=== PATIENT | male | born 1970 | race African-American/Black ===

== ENCOUNTER 2023-04-21 20:12 | Emergency (ER) | payer BC, OTHER ==
[2023-04-21 21:08] VITALS: BP 152/92; PULSE 125; RESP 20; TEMP 100.1
[2023-04-21] MEDS: ACETAMINOPHEN TAB 500 MG TAB PO STA (22:59)
[2023-04-21] MEDS: IBUPROFEN 800 MG TAB PO STA (23:00)
--- NOTE | 2023-04-21 23:21 | XR ---
EXAM: XR Chest, 2 Views CLINICAL HISTORY: ITS.REASON XR Reason: cough, fever TECHNIQUE: Frontal and lateral views of the chest. COMPARISON: No relevant prior studies available. FINDINGS: Lungs: No consolidation. No overt edema. Pleural space: No pleural effusion. No pneumothorax. Heart: Unremarkable. No cardiomegaly. Bones/joints: Unremarkable. No fracture or malalignment. Upper abdomen: Elevated right hemidiaphragm. IMPRESSION: Elevated right hemidiaphragm.
--- NOTE | 2023-04-22 00:14 | ED ---
URI HPI - General Chief Complaint: Upper Respiratory Infection Stated Complaint: pressure in head Time Seen by Provider: 04/21/23 22:13 Source: patient Mode of arrival: ambulatory Limitations: no limitations - History of Present Illness Initial Comments: 53-year-old male presenting with chief complaint of fever cough and congestion. He states that symptoms started today. He admits to headache. He does have some chest pain with coughing otherwise no chest pain. Minimal shortness of breath. No abdominal pain nausea vomiting or diarrhea. He has been taking DayQuil for his symptoms. - Related Data Previous Rx's Medication Instructions Recorded Oseltamivir [Tamiflu] 75 mg PO Q12HR 5 Days #9 cap 04/22/23 Allergies Allergy/AdvReac Type Severity Reaction Status Date / Time No Known Allergies Allergy Verified 04/21/23 20:48 Review of Systems ROS Statement: Those systems with pertinent positive or pertinent negative responses have been documented in the HPI. ROS Other: All systems not noted in ROS Statement are negative. Past Medical History Past Medical History: Hypertension History of Any Multi-Drug Resistant Organisms: None Reported Past Surgical History: No Surgical Hx Reported Past Psychological History: No Psychological Hx Reported Smoking Status: Never smoker Past Alcohol Use History: None Reported Past Drug Use History: None Reported General Exam Limitations: no limitations General appearance: alert, in no apparent distress Head exam: Present: atraumatic, normocephalic Eye exam: Present: normal appearance Neck exam: Present: normal inspection Respiratory exam: Present: normal lung sounds bilaterally. Absent: respiratory distress, wheezes, rales, rhonchi, stridor Cardiovascular Exam: Present: normal rhythm, tachycardia, normal heart sounds. Absent: systolic murmur, diastolic murmur, rubs, gallop, clicks Neurological exam: Present: alert, oriented X3 Expanded Patient oriented to: Present: person, place, time Speech: Present: fluid speech Eye Response: (4) open spontaneously Motor Response: (6) obeys commands Verbal Response: (5) oriented Psychiatric exam: Present: normal affect, normal mood Skin exam: Present: warm, dry Course Vital Signs 04/21/23 20:45 Temperature 100.1 F H Pulse Rate 125 H Respiratory 20 Rate Blood Pressure 152/92 O2 Sat by Pulse 97 Oximetry Medical Decision Making - Medical Decision Making Was pt. sent in by a medical professional or institution (Dr., PA, DRIER TENDER [employer], urgent care, hospital, or skilled nursing...) When possible be specific @ -No Did you speak to anyone other than the patient for history (EMS, parent, family, police, friend...)? What history was obtained from this source @ -No Did you review nursing and triage notes (agree or disagree)? Why? @ -I reviewed and agree with nursing and triage notes Were old charts reviewed (outside hosp., previous admission, EMS record, old EKG, old radiological studies, urgent care reports/EKG's, skilled nursing records)? Report findings @ -No old charts were reviewed Differential Diagnosis (chest pain, altered mental status, abdominal pain women, abdominal pain men, vaginal bleeding, weakness, fever, dyspnea, syncope, headache, dizziness, GI bleed, back pain, seizure, CVA, palpatations, mental health, musculoskeletal)? @ -Differential includes influenza, RSV, COVID, pneumonia, bronchitis, this is not an all-inclusive list EKG interpreted by me (3pts min.). @ -As above X-rays interpreted by me (1pt min.). @ -Chest x-ray shows elevated right hemidiaphragm CT interpreted by me (1pt min.). @ -None done U/S interpreted by me (1pt. min.). @ -None done What testing was considered but not performed or refused? (CT, X-rays, U/S, labs)? Why? @ -None What meds were considered but not given or refused? Why? @ -None Did you discuss the management of the patient with other professionals (professionals i.e. , PA, D[employer] T[employer], lab, RT, psych nurse, oncology social worker, field specialist, teacher, probation and parole officer, housing case manager)? Give summary @ -No Was smoking cessation discussed for >3mins.? @ -No Was critical care preformed (if so, how long)? @ -No Were there social determinants of health that impacted care today? How? (Homelessness, low income, unemployed, alcoholism, drug addiction, transportation, low edu. Level, literacy, decrease access to med. care, prison, rehab)? @ -No Was there de-escalation of care discussed even if they declined (Discuss DNR or withdrawal of care, Hospice)? DNR status @ -No What co-morbidities impacted this encounter? (DM, HTN, Smoking, COPD, CAD, Canc er, CVA, ARF, Chemo, Hep., AIDS, mental health diagnosis, sleep apnea, morbid obesity)? @ -None Was patient admitted / discharged? Hospital course, mention meds given and route, prescriptions, significant lab abnormalities, going to OR and other pertinent info. @ -53-year-old male presenting with chief complaint of fever cough congestion and headache. Workup was initiated by triage. He is positive for influenza A. I then bring the patient into the [facility] room and performed the history and physical exam. He is febrile and subsequently tachycardic. He is given Motrin and Tylenol for his fever. Chest x-ray shows elevated right hemidiaphragm. He is educated on today's findings and started on Tamiflu. Discharged home. Follow-up with PCP. Report back to ER with any new or worsening symptoms. Discussed return parameters and answered all questions. Patient conveyed verbal understanding and agreed to the plan. I discussed this case in detail with my attending Dr. Daíz Undiagnosed new problem with uncertain prognosis? @ -No Drug Therapy requiring intensive monitoring for toxicity (Heparin, Nitro, Insulin, Cardizem)? @ -No Were any procedures done? @ -No Diagnosis/symptom? @ -Influenza A Acute, or Chronic, or Acute on Chronic? @ -Acute Uncomplicated (without systemic symptoms) or Complicated (systemic symptoms)? @ -complicated Side effects of treatment? @ -No Exacerbation, Progression, or Severe Exacerbation? @ -No Poses a threat to life or bodily function? How? (Chest pain, [place], [place], pneumonia, PE, COPD, DKA, ARF, appy, cholecystitis, CVA, Diverticulitis, Homicidal, Suicidal, threat to staff... and all critical care pts) @ -Unlikely - Lab Data Lab Results 04/21/23 Range/Units 20:50 Influenza Type A (PCR) Detected A (Not Detectd) Influenza Type B (PCR) Not Detected (Not Detectd) RSV (PCR) Not Detected (Not Detectd) SARS-CoV-2 (PCR) Not Detected (Not Detectd) Disposition Clinical Impression: Influenza Disposition: HOME SELF-CARE Condition: Good Instructions (If sedation given, give patient instructions): Influenza (ED) Additional Instructions: Follow-up with PCP. Report back to ER with any new or worsening symptoms. Alternate Motrin and Tylenol as needed for fever and pain control. Take Tamiflu as prescribed. Prescriptions: Oseltamivir [Tamiflu] 75 mg PO Q12HR 5 Days #9 cap Is patient prescribed a controlled substance at d/c from ED?: No Referrals: Celia Alvarado FNPBC [REFERRING] - 1-2 days Time of Disposition: 00:14
[2023-04-22] MEDS: OSELTAMIVIR 75 MG CAP PO STA (00:32)
[2023-04-22] MEDS: FLUTICASONE 50MCG/SPRAY NASAL 16GM EA NOSTRIL STA (00:32)
[2023-04-22] MEDS: IBUPROFEN 600 MG STARTER PACK 4 TAB BTL PO STA (00:32)
== END 2023-04-22 00:44 | disposition home or self-care (01) ==
LOC: EC 20:12
DX: J10.1 Influenza due to other identified influenza virus with other respiratory manifestations (principal); I10 Essential (primary) hypertension; Z20.822 Contact with and (suspected) exposure to COVID-19
CPT/HCPCS: 71046; 87636; 99283

== ENCOUNTER → 2023-05-13 | Outpatient (CLI) | payer OTHER ==
--- NOTE | 2023-05-13 21:06 | MR ---
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 Vision loss COMPARISON: None TECHNIQUE: Multi planar, multi sequence imaging was performed through the brain including: T1, T2, In version recovery, susceptibility weighted imaging and gradient echo imaging and Diffusion weighted im aging. The patient was then given intravenous contrast and multi planar, T1 fat-saturation images wer e obtained. IV Contrast: 10 cc Gadavist FINDINGS: The zelaya-white junctions, ventricular system, basal cisterns appear unremarkable. Diffusion-weighted imaging shows no evidence of restricted diffusion to suggest acute/subacute infarct. Intracranial ar terial flow voids are maintained. Midline structures show no abnormality. The susceptibility weighted images do not reveal any evidence for micro-hemorrhage. After administration of gadolinium, no abnor mal enhancement is seen. The bone marrow signal is within normal limits. Paranasal sinuses and mastoid air cells: Mild scattered paranasal sinus disease. Trace high T2 signal within the left mastoid air cells. The globes appear symmetrical. Orbital contents are intact. Signal intensity of the optic nerves are within normal limits. The intraorbital fat appears preserved. Both lacrimal glands are unremarkabl e. The extraocular muscles appear symmetric. After administration of contrast, no abnormal enhancemen t is seen. IMPRESSION: 1. No evidence of intraorbital mass or significant abnormality. Optic nerves appear symmetric. 2. No evidence of intracranial mass, acute/subacute infarct, or abnormal enhancement. 3. Trace left mastoid air cell effusion.
== END | disposition home or self-care (01) ==
LOC: RADMRIMAIN 19:35
PROVIDERS: ATTEND Ophthalmology
DX: H74.8X2 Other specified disorders of left middle ear and mastoid (principal); H47.291 Other optic atrophy, right eye; H53.123 Transient visual loss, bilateral
CPT/HCPCS: 70553; A9585

== ENCOUNTER 2024-05-28 22:26 | Emergency (ER) | payer OTHER ==
[2024-05-28 22:35] VITALS: TEMP 97.6
--- NOTE | 2024-05-28 23:01 | ED ---
General Adult HPI - General Chief complaint: Recheck/Abnormal Lab/Rx Stated complaint: Abd,Back Pain-Post Surgery Time Seen by Provider: 05/28/24 22:58 Source: patient, RN notes reviewed Mode of arrival: ambulatory Limitations: no limitations - History of Present Illness Initial comments: 54-year-old male presenting for right flank pain status post kidney stone removal earlier this afternoon. States the stent was placed last Tuesday for right-sided kidney stone and was taken out by urologist at [facility] earlier this afternoon. States since the procedure he has had intractable right flank pain. He has been taking Garvin with little relief. States his urine has been discolored since the kidney stone last week. Denies nausea, vomiting, fevers, chills. - Related Data Previous Rx's Medication Instructions Recorded Oseltamivir [Tamiflu] 75 mg PO Q12HR 5 Days #9 cap 04/22/23 Ketorolac [Toradol] 10 mg PO Q8HR #15 tab 05/29/24 Tamsulosin [Flomax] 0.4 mg PO DAILY 7 Days #7 cap 05/29/24 Allergies Allergy/AdvReac Type Severity Reaction Status Date / Time No Known Allergies Allergy Verified 05/28/24 22:35 Review of Systems ROS Statement: Those systems with pertinent positive or pertinent negative responses have been documented in the HPI. ROS Other: All systems not noted in ROS Statement are negative. Past Medical History Past Medical History: Hypertension History of Any Multi-Drug Resistant Organisms: None Reported Past Surgical History: No Surgical Hx Reported Past Psychological History: No Psychological Hx Reported Smoking Status: Never smoker Past Alcohol Use History: None Reported Past Drug Use History: None Reported General Exam Limitations: no limitations General appearance: alert, other (Patient is doubled over on stretcher moaning in pain during physical examination) Head exam: Present: atraumatic, normocephalic, normal inspection GI/Abdominal exam: Present: soft, normal bowel sounds. Absent: distended, tenderness, guarding, rebound, rigid Back exam: Present: CVA tenderness (R). Absent: CVA tenderness (L) Course Vital Signs 05/28/24 22:33 Temperature 97.6 F Pulse Rate 80 Respiratory 15 Rate Blood Pressure 128/87 O2 Sat by Pulse 96 Oximetry Medical Decision Making - Medical Decision Making Was pt. sent in by a medical professional or institution (Dr., PA, SIGNALMAN, urgent care, hospital, or retirement...) When possible be specific @ -No Did you speak to anyone other than the patient for history (EMS, parent, family, police, friend...)? What history was obtained from this source @ -No Did you review nursing and triage notes (agree or disagree)? Why? @ -I reviewed and agree with nursing and triage notes Were old charts reviewed (outside hosp., previous admission, EMS record, old EKG , old radiological studies, urgent care reports/EKG's, retirement records)? Report findings @ -No old charts were reviewed Differential Diagnosis (chest pain, altered mental status, abdominal pain women, abdominal pain men, vaginal bleeding, weakness, fever, dyspnea, syncope, headache, dizziness, GI bleed, back pain, seizure, CVA, palpatations, mental health, musculoskeletal)? @ -Differential Abdominal Pain Men: Appendicitis, cholecystitis, diverticulosis, ischemic bowel, pancreatitis, hepat itis, UTI, gastroenteritis, AAA, incarcerated hernia, bowel obstruction, constipation, inflammatory bowel, hepatitis, peptic ulcer disease, splenic infarction, perforated viscus, testicular torsion, this is not meant to be an all-inclusive list EKG interpreted by me (3pts min.). @ -None X-rays interpreted by me (1pt min.). @ -None done CT interpreted by me (1pt min.). @ -CT abdomen pelvis with contrast reveals obstructing 3 mm right hydronephrosis of right kidney U/S interpreted by me (1pt. min.). @ -None done What testing was considered but not performed or refused? (CT, X-rays, U/S, labs)? Why? @ -None What meds were considered but not given or refused? Why? @ -None Did you discuss the management of the patient with other professionals (professionals i.e. SALAZAR Mcnamara, SIGNALMAN, lab, RT, psych nurse, older adult social work specialist, associate publisher, teacher, aeronautical engineering officer, immigration case worker)? Give summary @ -No Was smoking cessation discussed for >3mins.? @ -No Was critical care preformed (if so, how long)? @ -No Were there social determinants of health that impacted care today? How? (Homelessness, low income, unemployed, alcoholism, drug addiction, transportation, low edu. Level, literacy, decrease access to med. care, custodial, rehab)? @ -No Was there de-escalation of care discussed even if they declined (Discuss DNR or withdrawal of care, Hospice)? DNR status @ -No What co-morbidities impacted this encounter? (DM, HTN, Smoking, COPD, CAD, Cancer, CVA, ARF, Chemo, Hep., AIDS, mental health diagnosis, sleep apnea, mo rbid obesity)? @ -None Was patient admitted / discharged? Hospital course, mention meds given and [place], prescriptions, significant lab abnormalities, going to OR and other pertinent info. @ - discharge. 54-year-old male presenting for right flank pain status post kidney stent removal earlier this afternoon. Patient is afebrile and nontachycardic. Positive right CVA tenderness. Patient is provided with IV fluids, Dilaudid, Toradol, and Zofran. CBC without leukocytosis. Creatinine 1.68. No lactic acidosis. Urinalysis remarkable for large blood and 34 white blood cells likely due to blood. CT abdomen pelvis with contrast reveals obstructing 3 mm stone with right hydronephrosis of right kidney. Upon reevaluation, patient reports pain is controlled. Results discussed with patient. Patient can be safely discharged at this time as there is no evidence of infection. Patient is comfortable with this plan. Advised to follow-up with his urologist within the week for reevaluation. Appropriate return precautions discussed. Provided with outpatient prescription of Flomax and Toradol. Case was discussed with my ED attending Dr. Zuniga. Undiagnosed new problem with uncertain prognosis? @ -No Drug Therapy requiring intensive monitoring for toxicity (Heparin, Nitro, Insulin, Cardizem)? @ -No Were any procedures done? @ -No Diagnosis/symptom? @ -Right nephrolithiasis Acute, or Chronic, or Acute on Chronic? @ -Acute Uncomplicated (without systemic symptoms) or Complicated (systemic symptoms)? @ -Uncomplicated Side effects of treatment? @ -No Exacerbation, Progression, or Severe Exacerbation? @ -No Poses a threat to life or bodily function? How? (Chest pain, [place], [place], pneumonia, PE, COPD, DKA, ARF, appy, cholecystitis, CVA, Diverticulitis, Homicidal, Suicidal, threat to staff... and all critical care pts) @ -No - Lab Data Result diagrams: 05/28/24 23:03 05/28/24 23:03 Lab Results 05/28/24 05/28/24 05/28/24 Range/Units 23:03 23:03 23:03 WBC 9.4 (3.8-10.6) k/uL RBC 5.31 (4.30-5.90) m/uL Hgb 13.2 (13.0-17.5) gm/dL Hct 45.1 (39.0-53.0) % MCV 85.0 (80.0-100.0) fL MCH 24.8 L (25.0-35.0) pg MCHC 29.2 L (31.0-37.0) g/dL RDW 15.4 (11.5-15.5) % Plt Count 283 (150-450) k/uL MPV 7.5 Neutrophils % 78 % Lymphocytes % 13 % Monocytes % 6 % Eosinophils % 1 % Basophils % 0 % Neutrophils # 7.4 (1.3-7.7) k/uL Lymphocytes # 1.2 (1.0-4.8) k/uL Monocytes # 0.5 (0-1.0) k/uL Eosinophils # 0.1 (0-0.7) k/uL Basophils # 0.0 (0-0.2) k/uL Hypochromasia Marked Sodium 139 (137-145) mmol/L Potassium 4.5 (3.5-5.1) mmol/L Chloride 109 H (98-107) mmol/L Carbon Dioxide 19 L (22-30) mmol/L Anion Gap 11 mmol/L BUN 11 (9-20) mg/dL Creatinine 1.68 H (0.66-1.25) mg/dL Est GFR (CKD-EPI)AfAm 53 (>60 ml/min/1.73 sqM) Est GFR (CKD-EPI)NonAf 46 (>60 ml/min/1.73 sqM) Glucose 144 H (74-99) mg/dL Plasma Lactic Acid Dustin 1.1 (0.7-2.0) mmol/L Calcium 9.1 (8.4-10.2) mg/dL Total Bilirubin 0.6 (0.2-1.3) mg/dL AST 20 (17-59) U/L ALT 10 (4-49) U/L Alkaline Phosphatase 103 (38-126) U/L Total Protein 8.6 H (6.3-8.2) g/dL Albumin 4.0 (3.5-5.0) g/dL Urine Color Urine Appearance (Clear) Urine pH (5.0-8.0) Ur Specific [place] (1.001-1.035) Urine Protein (Negative) Urine Glucose (UA) (Negative) Urine Ketones (Negative) Urine Blood (Negative) Urine Nitrite (Negative) Urine Bilirubin (Negative) Urine Urobilinogen (<2.0) mg/dL Ur Leukocyte Esterase (Negative) Urine RBC (0-5) /hpf Urine WBC (0-5) /hpf Urine Bacteria (None) /hpf Urine Mucus (None) /hpf 05/29/24 Range/Units 02:38 WBC (3.8-10.6) k/uL RBC (4.30-5.90) m/uL Hgb (13.0-17.5) gm/dL Hct (39.0-53.0) % MCV (80.0-100.0) fL MCH (25.0-35.0) pg MCHC (31.0-37.0) g/dL RDW (11.5-15.5) % Plt Count (150-450) k/uL MPV Neutrophils % % Lymphocytes % % Monocytes % % Eosinophils % % Basophils % % Neutrophils # (1.3-7.7) k/uL Lymphocytes # (1.0-4.8) k/uL Monocytes # (0-1.0) k/uL Eosinophils # (0-0.7) k/uL Basophils # (0-0.2) k/uL Hypochromasia Sodium (137-145) mmol/L Potassium (3.5-5.1) mmol/L Chloride (98-107) mmol/L Carbon Dioxide (22-30) mmol/L Anion Gap mmol/L BUN (9-20) mg/dL Creatinine (0.66-1.25) mg/dL Est GFR (CKD-EPI)AfAm (>60 ml/min/1.73 sqM) Est GFR (CKD-EPI)NonAf (>60 ml/min/1.73 sqM) Glucose (74-99) mg/dL Plasma Lactic Acid Dustin (0.7-2.0) mmol/L Calcium (8.4-10.2) mg/dL Total Bilirubin (0.2-1.3) mg/dL AST (17-59) U/L ALT (4-49) U/L Alkaline Phosphatase (38-126) U/L Total Protein (6.3-8.2) g/dL Albumin (3.5-5.0) g/dL Urine Color Yellow Urine Appearance Clear (Clear) Urine pH 7.0 (5.0-8.0) Ur Specific [place] 1.037 H (1.001-1.035) Urine Protein 1+ H (Negative) Urine Glucose (UA) Negative (Negative) Urine Ketones Negative (Negative) Urine Blood Large H (Negative) Urine Nitrite Negative (Negative) Urine Bilirubin Negative (Negative) Urine Urobilinogen <2.0 (<2.0) mg/dL Ur Leukocyte Esterase Small H (Negative) Urine RBC >182 H (0-5) /hpf Urine WBC 34 H (0-5) /hpf Urine Bacteria Rare H (None) /hpf Urine Mucus Rare H (None) /hpf Disposition Clinical Impression: Right nephrolithiasis Disposition: HOME SELF-CARE Condition: Stable Instructions (If sedation given, give patient instructions): Kidney Stones (ED) Additional Instructions: Take Flomax as directed and Toradol as needed for pain. Follow-up with your urologist as discussed. Please return to the Emergency Department if symptoms worsen or any other concerns. Prescriptions: Tamsulosin [Flomax] 0.4 mg PO DAILY 7 Days #7 cap Ketorolac [Toradol] 10 mg PO Q8HR #15 tab Is patient prescribed a controlled substance at d/c from ED?: No Referrals: Shameka Arechiga MD [Primary Care Provider] - 1-2 days Time of Disposition: 03:33
[2024-05-28] MEDS: HYDROmorphone 1 MG/ML 1 ML SYRINGE IVP STA (23:11)
[2024-05-28] MEDS: KETOROLAC 15 MG/ML 1 ML VIAL IVP STA (23:12)
[2024-05-28] MEDS: SODIUM CHLORIDE 0.9% 1,000 ML IV STA (23:12)
[2024-05-28] MEDS: ONDANSETRON 4 MG/2 ML VIAL IVP STA (23:12)
[2024-05-28 23:24] LABS: ALT 10 U/L (4-49); AST 20 U/L (17-59); African American GFR (CKD) 53 (>60 ml/min/1.73 sqM); Alkaline Phosphatase 103 U/L (38-126); Anion Gap 11 mmol/L; Blood Urea Nitrogen 11 mg/dL (9-20); Calcium 9.1 mg/dL (8.4-10.2); Carbon Dioxide 19 mmol/L (22-30); Chloride 109 mmol/L (98-107); Glucose 144 mg/dL (74-99); Non-African American GFR(CKD) 46 (>60 ml/min/1.73 sqM); Potassium 4.5 mmol/L (3.5-5.1); Sodium 139 mmol/L (137-145); Total Bilirubin 0.6 mg/dL (0.2-1.3); Total Protein 8.6 g/dL (6.3-8.2)
[2024-05-28 23:46] LABS: Basophils % (A) 0 %; Eosinophils # (A) 0.1 k/uL (0-0.7); Eosinophils % (A) 1 %; HCT 45.1 % (39.0-53.0); HGB 13.2 gm/dL (13.0-17.5); Hypochromasia Marked; Lymphocytes # (A) 1.2 k/uL (1.0-4.8); Lymphocytes % (A) 13 %; MCH 24.8 pg (25.0-35.0); MCHC 29.2 g/dL (31.0-37.0); Mean Platelet Volume 7.5; Monocytes # (A) 0.5 k/uL (0-1.0); Monocytes % (A) 6 %; Neutrophils # (A) 7.4 k/uL (1.3-7.7); Neutrophils % (A) 78 %; Platelet Count 283 k/uL (150-450); RBC 5.31 m/uL (4.30-5.90); RDW 15.4 % (11.5-15.5); WBC 9.4 k/uL (3.8-10.6)
[2024-05-29] MEDS: HYDROmorphone 1 MG/ML 1 ML SYRINGE IVP STA (01:32)
[2024-05-29] MEDS: KETOROLAC 15 MG/ML 1 ML VIAL IVP STA (01:32)
--- NOTE | 2024-05-29 01:35 | CT ---
EXAM: CT Abdomen and Pelvis With Intravenous Contrast CLINICAL HISTORY: ITS.REASON CT Reason: right flank pain s/p kidney stent removal TECHNIQUE: Axial computed tomography images of the abdomen and pelvis with intravenous contrast. CTDI is 24 mGy and DLP is 1388.5 mGy-cm. This CT exam was performed using one or more of the following dose reduction techniques: automated exposure control, adjustment of the mA and/or kV according to patient size, and/or use of iterative reconstruction technique. COMPARISON: No relevant prior studies available. FINDINGS: Lung bases: Unremarkable. No mass. No consolidation. ABDOMEN: Liver: Unremarkable. No mass. Gallbladder and bile ducts: Unremarkable. No calcified stones. No ductal dilation. Pancreas: Unremarkable. No mass. No ductal dilation. Spleen: Unremarkable. No splenomegaly. Adrenals: Unremarkable. No mass. Kidneys and ureters: Obstructing 3 mm RIGHT mild hydronephrosis of the RIGHT kidney with delayed nephrogram. Extensive bilateral nonobstructing renal stones, measuring up to approximately 8 mm in size. Stomach and bowel: Diverticulosis, without acute diverticulitis. No small bowel obstruction. No free intraperitoneal air. PELVIS: Appendix: No findings to suggest acute appendicitis. Bladder: Unremarkable. No mass. Reproductive: Unremarkable as visualized. ABDOMEN and PELVIS: Intraperitoneal space: Unremarkable. No free air. No significant fluid collection. Bones/joints: No acute fracture. No dislocation. Soft tissues: Fat-containing bilateral inguinal hernias. Vasculature: Unremarkable. No abdominal aortic aneurysm. Lymph nodes: Unremarkable. No enlarged lymph nodes. IMPRESSION: 1. Obstructing 3 mm RIGHT mild hydronephrosis of the RIGHT kidney with delayed nephrogram. 2. Diverticulosis, without acute diverticulitis. No small bowel obstruction. No free intraperitoneal air.
[2024-05-29 03:08] LABS: Appearance,Urine Clear (Clear); Bacteria,Urine Rare /hpf; Bilirubin,Urine Negative (Negative); Blood,Urine Large (Negative); Color,Urine Yellow; Glucose,Urine (UA) Negative (Negative); Ketones,Urine Negative (Negative); Leukocyte Esterase,Urine Small (Negative); Mucus,Urine Rare /hpf; Nitrite,Urine Negative (Negative); Protein,Urine 1+ (Negative); RBC,Urine >182 /hpf (0-5); Specific Gravity,Urine 1.037 (1.001-1.035); Urobilinogen,Urine <2.0 mg/dL (<2.0); WBC,Urine 34 /hpf (0-5)
[2024-05-29 04:26] VITALS: BP 98/71; PULSE 87; RESP 16
== END 2024-05-29 03:50 | disposition home or self-care (01) ==
LOC: EC 22:26
DX: N20.0 Calculus of kidney (principal)
CPT/HCPCS: 80053; 83605; 85025; 99284; 96374; 96375; 96361; 96376; J2405; J1171; J1885; 36415; 74177; 81001

== ENCOUNTER → 2024-07-19 | Outpatient (CLI) | payer OTHER ==
--- NOTE | 2024-07-19 13:47 | CT ---
EXAMINATION TYPE: CT abdomen pelvis wo con DATE OF EXAM: 07/19/2024 COMPARISON: 05/30/2019 CLINICAL INDICATION: Male, 54 years old with history of N20.0 calculus; PHH, Renal stone TECHNIQUE: CT scan of the abdomen and pelvis is performed without oral or IV contrast. CT DLP: 923.[address] CTDI: mGy Automated exposure control for dose reduction was used. FINDINGS: Within the limitations of a non-contrast study, the following observations are made. The lungs are clear. Gallbladder is normal and there is no gallstone, wall thickening, pericholecystic fluid or distention . There is no biliary ductal dilatation. There is no organomegaly of the liver, pancreas, spleen or adrenal glands. The hydronephrosis seen within the right kidney on the prior study has resolved. There is a cluster o f calcifications in the central right renal collecting system which is 6.2. The calculus in the right renal pelvis on the prior study migrated proximally result. There is been interval placement of a left ureteral stent is properly positioned within the left leanna l collecting system and urinary bladder. There is a persistent cluster of 3 large calcifications in t he lower pole of the left kidney the largest measuring 12 mm the others measuring 9.6 mm and 7.8 mm. Cluster of tiny calcifications seen in the mid right kidney on the prior study have resolved. There a re no calcifications visualized along the course of the left ureteral stent. The caliber of the abdominal aorta is normal and there is no retroperitoneal adenopathy or hemorrhage . The bowel loops are normal in caliber is no evidence of obstruction. No inflammatory changes are iden tified in the mesentery and there is no free intraperitoneal air or fluid. There is no pelvic mass, free fluid, abscess or adenopathy. There is mild prostatic hypertrophy. The osseous structures and soft tissues are unremarkable. IMPRESSION: 1. Interval placement of a left ureteral stent as described above. 2. Interval resolution of the right hydronephrosis. 3. bilateral nephrocalcinosis as described above. 4. Mild prostatic hypertrophy. [facility], , 07/19/2024 1:45 PM
== END | disposition home or self-care (01) ==
LOC: RADCTMAIN 12:48
PROVIDERS: ATTEND Urology
DX: N20.0 Calculus of kidney (principal); N40.0 Benign prostatic hyperplasia without lower urinary tract symptoms; N29 Other disorders of kidney and ureter in diseases classified elsewhere; Z96.0 Presence of urogenital implants
CPT/HCPCS: 74176

== ENCOUNTER 2024-09-07 03:17 | Emergency (ER) | payer OTHER ==
[2024-09-07 03:24] VITALS: TEMP 99.8
[2024-09-07] MEDS: ONDANSETRON 4 MG/2 ML VIAL IVP STA (06:04)
[2024-09-07] MEDS: LACTATED RINGERS 1,000 ML IV ONE (06:04)
[2024-09-07] MEDS: MORPHINE SULFATE 4 MG/ML SYRINGE IVP STA (06:04)
[2024-09-07] MEDS: ACETAMINOPHEN TAB 325 MG TAB PO STA (06:05)
[2024-09-07] MEDS: PANTOPRAZOLE 40 MG/10 ML VIAL IVP STA (06:06)
--- NOTE | 2024-09-07 06:07 | ED ---
General Adult HPI - General Source: patient, RN notes reviewed, old records reviewed Mode of arrival: ambulatory Limitations: no limitations <Dae Livingston - Last Filed: 09/07/24 07:39> <Case Perez - Last Filed: 09/07/24 08:47> - General Chief complaint: Abdominal Pain Stated complaint: Post-Op Complications Time Seen by Provider: 09/07/24 03:50 - History of Present Illness Initial comments: Patient is a 54-year-old male who presents emergency department complaining of abdominal pain. Had a recent lithotripsy with nephrostomy drain placed and subsequently removed at an outside facility. Was at [facility]. Has a history of hypertension and kidney stones. Patient is also legally blind. States that he was told to come to the ER if he began having fevers, chills, or worsening pain. He is having all of those. Denies any significant change in the drainage since he was discharged yesterday afternoon. Presents for further evaluation at this time. Denies nausea, vomiting, diarrhea. Denies chest pain or shortness of breath. Presents for further evaluation. (Dae Livingston) - Related Data Previous Rx's Medication Instructions Recorded Oseltamivir [Tamiflu] 75 mg PO Q12HR 5 Days #9 cap 04/22/23 Ketorolac [Toradol] 10 mg PO Q8HR #15 tab 05/29/24 Tamsulosin [Flomax] 0.4 mg PO DAILY 7 Days #7 cap 05/29/24 Allergies Allergy/AdvReac Type Severity Reaction Status Date / Time No Known Allergies Allergy Verified 09/07/24 03:24 Review of Systems ROS Other: All systems not noted in ROS Statement are negative. <Dae Livingston - Last Filed: 09/07/24 07:39> ROS Other: All systems not noted in ROS Statement are negative. <Case Perez - Last Filed: 09/07/24 08:47> ROS Statement: Those systems with pertinent positive or pertinent negative responses have been documented in the HPI. Review of Systems: CONST: Denies fever EYES: Denies blurry vision ENT: Denies nasal congestion C/V: Denies Chest pain RESP: Denies shortness of breath GI: Endorses abdominal pain : Denies dysuria SKIN: Denies rash. MSK: Denies joint pain. NEURO: Denies headache (Dae Livingston) Past Medical History Past Medical History: Hypertension History of Any Multi-Drug Resistant Organisms: None Reported Past Surgical History: No Surgical Hx Reported Past Psychological History: No Psychological Hx Reported Smoking Status: Never smoker Past Alcohol Use History: None Reported Past Drug Use History: None Reported <Dae Livingston - Last Filed: 09/07/24 07:39> General Exam Limitations: no limitations <Dae Livingston - Last Filed: 09/07/24 07:39> - General Exam Comments Initial Comments: General: Appears in mild distress. HEAD: Normal with no signs of head trauma. EYES: EOMI ENT: Hearing grossly intact, normal oropharynx. RESPIRATORY: Clear breath sounds bilaterally. No wheezes, rales, or rhonchi. C/V: Tachycardic with regular rhythm. S1 and S2 auscultated, no edema, peripheral pulses 2+ and intact throughout ABD: Abdomen soft, nondistended. Tender palpation over the left flank. No significant discharge from the nephrostomy tube site that is covered. Seems to be serosanguineous in nature. No significant surrounding erythema. No obvious fluctuance present. No guarding or rebound tenderness present. EXT: Normal range of motion, no obvious deformity SKIN: See above for abdominal skin findings. NEURO: Alert oriented x 4. (Dae Livingston) Course Vital Signs 09/07/24 03:19 Temperature 99.8 F H Pulse Rate 123 H Respiratory 20 Rate Blood Pressure 128/75 O2 Sat by Pulse 96 Oximetry Medical Decision Making - Lab Data Result diagrams: 09/07/24 05:49 09/07/24 06:19 - EKG Data -: EKG Interpreted by Me <Dae Livingston - Last Filed: 09/07/24 07:39> - Lab Data Result diagrams: 09/07/24 05:49 09/07/24 06:19 <Case Perez - Last Filed: 09/07/24 08:47> - Medical Decision Making Was pt. sent in by a medical professional or institution (, PA, RECORDS MANAGEMENT MANAGER, urgent care, hospital, or correction...) When possible be specific @ -No Did you speak to anyone other than the patient for history (EMS, parent, family, police, friend...)? What history was obtained from this source @ -No Did you review nursing and triage notes (agree or disagree)? Why? @ -I reviewed and agree with nursing and triage notes Were old charts reviewed (outside hosp., previous admission, EMS record, old EKG, old radiological studies, urgent care reports/EKG's, correction records)? Report findings @ -No old charts were reviewed Differential Diagnosis (chest pain, altered mental status, abdominal pain women, abdominal pain men, vaginal bleeding, weakness, fever, dyspnea, syncope, headache, dizziness, GI bleed, back pain, seizure, CVA, palpatations, mental health, musculoskeletal)? @ -Differential Abdominal Pain Men: Appendicitis, cholecystitis, diverticulosis, ischemic bowel, pancreatitis, hepatitis, UTI, gastroenteritis, AAA, incarcerated hernia, bowel obstruction, constipation, inflammatory bowel, hepatitis, peptic ulcer disease, splenic infarction, perforated viscus, testicular torsion, this is not meant to be an all-inclusive list EKG interpreted by me (3pts min.). @ -As above X-rays interpreted by me (1pt min.). @ -None done CT interpreted by me (1pt min.). @ -Pending U/S interpreted by me (1pt. min.). @ -None done What testing was considered but not performed or refused? (CT, X-rays, U/S, labs)? Why? @ -None What meds were considered but not given or refused? Why? @ -None Did you discuss the management of the patient with other professionals (professionals i.e. , PA, RECORDS MANAGEMENT MANAGER, lab, RT, psych nurse, health social work professor, rewinder operator, teacher, navy senior officer, transplant case manager)? Give summary @ -No Was smoking cessation discussed for >3mins.? @ -No Was critical care preformed (if so, how long)? @ -No Were there social determinants of health that impacted care today? How? (Homelessness, low income, unemployed, alcoholism, drug addiction, transportation, low edu. Level, literacy, decrease access to med. care, shelter, rehab)? @ -No Was there de-escalation of care discussed even if they declined (Discuss DNR or withdrawal of care, Hospice)? DNR status @ -No What co-morbidities impacted this encounter? (DM, HTN, Smoking, COPD, CAD, Cancer, CVA, ARF, Chemo, Hep., AIDS, mental health diagnosis, sleep apnea, morbid obesity)? @ -None Was patient admitted / discharged? Hospital course, mention meds given and route, prescriptions, significant lab abnormalities, going to OR and other pertinent info. @ -Presents for postop pain, and possible postop infection. Recently had lithotripsy with nephrostomy drain that has been subsequently removed. This was done at an outside facility. Vitals remarkable for tachycardia and low-grade fever of 99.8. Patient will be symptomatically treated with IV fluids, Tylenol, morphine, Zofran, Protonix. Will obtain abdominal laboratory studies as well as CT imaging. Patient was in agreement this plan. Vitals otherwise within acceptable limits. EKG shows no signs of acute ischemia. Labs remarkable for leukocytosis of 11.9. Patient is mildly anemic with a hemoglobin of 9.4 which is likely related to recent surgery. Patient has a history of CKD with creatinine of 1.42. Lactic acid within normal limits. At this time, patient is pending CT imaging. Signed out to Dr. Perez pending results of imaging. Undiagnosed new problem with uncertain prognosis? @ -No Drug Therapy requiring intensive monitoring for toxicity (Heparin, Nitro, Insulin, Cardizem)? @ -No Were any procedures done? @ -No (Dae Livingston) Patient care was signed out at shift change awaiting CT imaging and reevaluation. CT shows perinephric fat stranding with perinephric hemorrhage or urine leak. Patient has not been able to give a urine in the emergency department but is covered with IV antibiotics concerning for infection given the fever and leukocytosis. Patient will be transferred to [facility] in [place] where his urologist practice. Case discussed with ER physician Dr. Grove who will accept. (Case Perez) - Lab Data Lab Results 09/07/24 09/07/24 09/07/24 Range/Units 04:20 05:49 05:49 WBC 11.90 H (4.50-10.00) 10*3/uL RBC 3.68 L (4.40-5.60) 10*6/uL Hgb 9.4 L (13.0-17.0) g/dL Hct 30.4 L (39.6-50.0) % MCV 82.6 (80.0-97.0) fL MCH 25.5 L (27.0-32.0) pg MCHC 30.9 L (32.0-37.0) g/dL Plt Count 234 (140-440) 10*3/uL MPV 9.5 (9.5-12.2) fL Immature Gran % (Auto) 0.3 % Neutrophils % 75.9 % Lymphocytes % 14.2 % Monocytes % 8.9 % Eosinophils % 0.3 % Basophils % 0.4 % Immature Gran # 0.04 (0.00-0.04) 10*3/uL Neutrophils # 9.02 H (1.80-7.70) 10*3/uL Lymphocytes # 1.69 (0.90-5.00) 10*3/uL Monocytes # 1.06 H (0.20-1.00) 10*3/uL Eosinophils # 0.04 (0.04-0.35) 10*3/uL Basophils # 0.05 (0.00-0.10) 10*3/uL PT 11.4 (10.0-12.5) sec INR 1.0 (<1.2) APTT 23.0 (22.0-30.0) sec Sodium (137-145) mmol/L Potassium (3.5-5.1) mmol/L Chloride (98-107) mmol/L Carbon Dioxide (22-30) mmol/L Anion Gap mmol/L BUN (9-20) mg/dL Creatinine (0.66-1.25) mg/dL Est GFR (CKD-EPI)AfAm (>60 ml/min/1.73 sqM) Est GFR (CKD-EPI)NonAf (>60 ml/min/1.73 sqM) Glucose (74-99) mg/dL Plasma Lactic Acid Dustin 0.9 (0.7-2.0) mmol/L Calcium (8.4-10.2) mg/dL Total Bilirubin (0.2-1.3) mg/dL AST (17-59) U/L ALT (4-49) U/L Alkaline Phosphatase (38-126) U/L Total Protein (6.3-8.2) g/dL Albumin (3.5-5.0) g/dL Amylase (30-110) U/L Lipase (23-300) U/L 09/07/24 Range/Units 06:19 WBC (4.50-10.00) 10*3/uL RBC (4.40-5.60) 10*6/uL Hgb (13.0-17.0) g/dL Hct (39.6-50.0) % MCV (80.0-97.0) fL MCH (27.0-32.0) pg MCHC (32.0-37.0) g/dL Plt Count (140-440) 10*3/uL MPV (9.5-12.2) fL Immature Gran % (Auto) % Neutrophils % % Lymphocytes % % Monocytes % % Eosinophils % % Basophils % % Immature Gran # (0.00-0.04) 10*3/uL Neutrophils # (1.80-7.70) 10*3/uL Lymphocytes # (0.90-5.00) 10*3/uL Monocytes # (0.20-1.00) 10*3/uL Eosinophils # (0.04-0.35) 10*3/uL Basophils # (0.00-0.10) 10*3/uL PT (10.0-12.5) sec INR (<1.2) APTT (22.0-30.0) sec Sodium 138 (137-145) mmol/L Potassium 3.9 (3.5-5.1) mmol/L Chloride 107 (98-107) mmol/L Carbon Dioxide 25 (22-30) mmol/L Anion Gap 6 mmol/L BUN 11 (9-20) mg/dL Creatinine 1.42 H (0.66-1.25) mg/dL Est GFR (CKD-EPI)AfAm 65 (>60 ml/min/1.73 sqM) Est GFR (CKD-EPI)NonAf 56 (>60 ml/min/1.73 sqM) Glucose 101 H (74-99) mg/dL Plasma Lactic Acid Dustin (0.7-2.0) mmol/L Calcium 8.5 (8.4-10.2) mg/dL Total Bilirubin 0.5 (0.2-1.3) mg/dL AST 21 (17-59) U/L ALT 10 (4-49) U/L Alkaline Phosphatase 66 (38-126) U/L Total Protein 6.6 (6.3-8.2) g/dL Albumin 3.0 L (3.5-5.0) g/dL Amylase 82 (30-110) U/L Lipase 117 (23-300) U/L - EKG Data EKG Comments: 12-lead Electrocardiogram Interpretation Note EKG was reviewed and interpreted by myself. 12-lead ECG performed at 0555 is interpreted by me as revealing sinus tachycardia at a rate of 109 beats per minute. Smith is normal. AK interval is 148 ms, QRS duration is 94 ms, QTc is 379 ms.. There were no ST or T wave abnormalities to suggest myocardial ischemia or injury. R wave progression across the precordium was satisfactory. By my interpretation this EKG is non-diagnostic for acute ischemia. (Dae Livingston) Disposition <Dae Livingston - Last Filed: 09/07/24 07:39> Is patient prescribed a controlled substance at d/c from ED?: No Time of Disposition: 08:47 - Out of Hospital Transfer - Req. Specs Out of Hospital Transfer - Requested Specifics: Other Emergency Center (Transfer to [facility]) <Case Perez - Last Filed: 09/07/24 08:47> Clinical Impression: Sepsis, Perinephric fluid collection Disposition: OTHER INSTITUTION NOT DEFINED Condition: Stable Referrals: Shameka Arechiga MD [Primary Care Provider] - 1-2 days
[2024-09-07 06:13] LABS: Basophils # (A) 0.05 10*3/uL (0.00-0.10); Basophils % (A) 0.4 %; Eosinophils # (A) 0.04 10*3/uL (0.04-0.35); Eosinophils % (A) 0.3 %; HCT 30.4 % (39.6-50.0); HGB 9.4 g/dL (13.0-17.0); Lymphocytes # (A) 1.69 10*3/uL (0.90-5.00); Lymphocytes % (A) 14.2 %; MCH 25.5 pg (27.0-32.0); MCHC 30.9 g/dL (32.0-37.0); MCV 82.6 fL (80.0-97.0); Mean Platelet Volume 9.5 fL (9.5-12.2); Monocytes # (A) 1.06 10*3/uL (0.20-1.00); Monocytes % (A) 8.9 %; Neutrophils # (A) 9.02 10*3/uL (1.80-7.70); Neutrophils % (A) 75.9 %; Platelet Count 234 10*3/uL (140-440); RBC 3.68 10*6/uL (4.40-5.60); RDW 14.6 % (11.5-14.5)
[2024-09-07 06:27] LABS: Prothrombin Time 11.4 sec (10.0-12.5)
[2024-09-07 06:50] LABS: ALT 10 U/L (4-49); AST 21 U/L (17-59); African American GFR (CKD) 65 (>60 ml/min/1.73 sqM); Alkaline Phosphatase 66 U/L (38-126); Amylase 82 U/L (30-110); Anion Gap 6 mmol/L; Blood Urea Nitrogen 11 mg/dL (9-20); Calcium 8.5 mg/dL (8.4-10.2); Carbon Dioxide 25 mmol/L (22-30); Chloride 107 mmol/L (98-107); Glucose 101 mg/dL (74-99); Lipase 117 U/L (23-300); Non-African American GFR(CKD) 56 (>60 ml/min/1.73 sqM); Potassium 3.9 mmol/L (3.5-5.1); Sodium 138 mmol/L (137-145); Total Bilirubin 0.5 mg/dL (0.2-1.3); Total Protein 6.6 g/dL (6.3-8.2)
--- NOTE | 2024-09-07 08:44 | CT ---
EXAMINATION TYPE: CT abdomen pelvis w con DATE OF EXAM: 09/07/2024 8:21 AM COMPARISON: 07/19/2024 CLINICAL INDICATION: Male, 54 years old with history of abdominal pain. Left sided pain. Recent uro p maddy; Lithotripsy on Tuesday. Pt now c/o fever, chills, nausea and abdominal pain. TECHNIQUE: Axial CT abdomen pelvis w con; Sagittal and coronal reformats were created on a separate workstation. Contrast used:100 ml mL of Isovue 300 with IV Contrast, CT DLP: 1439.4 mGycm, Automated exposure control for dose reduction was used. FINDINGS: LOWER CHEST: Ectatic descending thoracic aorta up to 3.0 cm. Strandy dependent and basilar atelectasi s present. ABDOMEN LIVER: Unremarkable GALLBLADDER AND BILE DUCTS: Unremarkable. PANCREAS: Unremarkable. SPLEEN: Unremarkable. ADRENAL GLANDS: Unremarkable. KIDNEYS AND URETERS: 3 right renal stones measuring up to 6 mm. The left ureteral stent has been nai conor in the interval. The previous left lower pole renal stones measuring up to 1.2 cm are largely sheridan e. A residual 3 mm calcification remains. There is patchy hypoattenuation of the lower pole as well a s a focal area of injury/contrast extravasation through the posterior lower pole cortex, refer to del ed axial scan image 55. There is mild left-sided hydronephrosis and hydroureter with a punctate 2 m m stone at the left UVJ. Couple small foci of air within the left upper pole calyceal system likely d ue to recent instrumentation. PELVIS BLADDER: Bladder urine distended. There is some nondependent intraluminal bladder air primarily relat ing to instrumentation. REPRODUCTIVE: Prostate gland mildly enlarged 4.5 cm wide. ABDOMEN & PELVIS STOMACH AND BOWEL: No evidence of bowel obstruction. Moderate stool right side of the colon. Left-fany ed colonic diverticulosis. No pericolonic inflammatory change. PERITONEUM/RETROPERITONEUM: No evidence of pneumoperitoneum or free fluid. VASCULATURE: No evidence of aortic aneurysm. MUSCULOSKELETAL: DISH mid and lower thoracic spine. LYMPH NODES: No gross evidence for lymphadenopathy. SOFT TISSUE/ABDOMINAL WALL: Unremarkable IMPRESSION: 1. Left kidney posterior lower pole calyceal and parenchymal injury allowing for focal active urine l eak/contrast extravasation (delayed axial series, image 55). Associated extensive perinephric edema/f luid. Patchy hypoenhancement at the lower pole may relate to the injury. Correlate to exclude superim posed infection. 2. Removal of the left ureteral stent. Only a single residual 3 mm stone remains clear at the left lo wer pole. However, there is mild left hydronephrosis with a punctate 2 mm stone at the left UVJ. 3. Small amount of intraluminal bladder air and a couple foci of air in the left renal collecting sys tem. Both likely related to recent procedure. [facility], , 09/07/2024 8:41 AM
[2024-09-07] MEDS: LACTATED RINGERS 1,000 ML IV SCH (09:51)
[2024-09-07 09:58] VITALS: BP 140/90; PULSE 100; RESP 16
== END 2024-09-07 10:15 | disposition other institution (70) ==
LOC: EC 03:17
DX: A41.9 Sepsis, unspecified organism (principal); N15.1 Renal and perinephric abscess
CPT/HCPCS: 36415; 93005; 80053; 82150; 83605; 83690; 85025; 85610; 85730; 87040; 74177; 99285; 96365; 96375 ×3; 96361; J2270; J2405; J0696; Q9967; J2470